=== PATIENT | male | born 1995 | race Caucasian/White ===

== ENCOUNTER → 2018-07-11 | Outpatient (CLI) | payer BC ==
--- NOTE | 2018-07-11 16:30 | US ---
EXAMINATION TYPE: US thyroid st tissue head/neck DATE OF EXAM: 07/11/2018 COMPARISON: NONE CLINICAL HISTORY: R22.1 LT SWELLING,MASS,LUMP IN NECK. Palpable area left neck At the area of the patient's palpable lump in the left neck, there is a probable lymph node visualize d measuring 2.9 x 1.0 x 1.6 cm. IMPRESSION: 1. Enlarged lymph node at the level of the palpable abnormality. 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 Recommendations: 1. Recommend CT soft tissue neck w con for additional evaluation.
== END | disposition home or self-care (01) ==
LOC: RADUSWWP 07:31
PROVIDERS: ATTEND Otolaryngology
DX: R22.1 Localized swelling, mass and lump, neck (principal)
CPT/HCPCS: 76536

== ENCOUNTER → 2018-07-29 | Outpatient (CLI) | payer BC ==
--- NOTE | 2018-07-29 09:01 | CT ---
EXAMINATION TYPE: CT soft tissue neck w con DATE OF EXAM: 07/29/2018 COMPARISON: None HISTORY: Lt neck mass CT DLP: 436 mGycm CONTRAST: CT scan of the neck is performed with IV Contrast, patient injected with 100 mL of Isovue 300. Contrast enhanced CT of the neck was performed from the skull base through the lung apices. AIRWAY: The supraglottic, glottic, and subglottic portions of the airway appear patent and free of mass. SALIVARY GLANDS: The submandibular and parotid glands are free of mass or inflammatory process. THYROID GLAND: No nodules or masses seen. LYMPH NODES: There is nonspecific adenopathy left internal jugular chain measuring 13 mm and 9.9 mm. Mildly prominent lymph nodes are also seen within the left posterior triangle measuring up to 7.8 mm. No right-sided adenopathy appreciated. LUNG APICES: No nodule or mass is seen. OTHER: Vascular structures are patent. No significant degenerative change of the cervical spine. N o abscess seen. IMPRESSION: 1. Nonspecific adenopathy. Correlate clinically.
== END | disposition home or self-care (01) ==
LOC: RADCTMAIN 07:57
PROVIDERS: ATTEND Otolaryngology
DX: R59.9 Enlarged lymph nodes, unspecified (principal)
CPT/HCPCS: 70491; Q9967

== ENCOUNTER 2018-08-12 09:01 | Day surgery (SDC) | payer BC ==
[2018-08-12 09:28] VITALS: RESP 16; TEMP 97.2
[2018-08-12] MEDS ORDERED: ALPRAZolam 0.5 MG TAB PO STA (09:34)
[2018-08-12 11:09] VITALS: BP 125/71; PULSE 71
--- NOTE | 2018-08-12 11:16 | US ---
ULTRASOUND GUIDED FNA THYROID BIOPSY: CLINICAL HISTORY: Left neck lymph node FINDINGS: The procedure was explained to the patient. The risks, complications, benefits and alternatives were discussed and any questions were answered. Informed consent was obtained. Patient was placed supin e on the ultrasound table and prepped and draped in the usual sterile fashion. Utilizing a 18 gauge core biopsy needle,two passes were made into the left neck lymph node. Patient was stable throughout the procedure. Pathology is pending. All elements of maximal barrier technique were utilized. IMPRESSION: 1. Successful ultrasound guided core biopsy left neck lymph node.
== END 2018-08-12 10:45 | disposition home or self-care (01) ==
LOC: RADPROMAIN 09:01
PROVIDERS: ATTEND Otolaryngology
DX: R59.0 Localized enlarged lymph nodes (principal)
CPT/HCPCS: 10005; 38505; 88305; 88312; 88341; 88342

== ENCOUNTER 2022-03-20 04:31 | Emergency (ER) | payer BC ==
[2022-03-20 04:41] VITALS: BP 115/74; RESP 16; TEMP 97.4
--- NOTE | 2022-03-20 06:47 | ED ---
ENT HPI - General Chief complaint: ENT Stated complaint: Sore throat Time Seen by Provider: 03/20/22 06:02 Source: patient, RN notes reviewed Mode of arrival: ambulatory Limitations: no limitations - History of Present Illness Initial comments: 26-year-old male present emergency department with chief complaint of sore throat congestion. Patient states symptoms started. She was getting better but she was significant other. Patient denies any reported fever states he felt warm the first initial day. Patient denies any symptoms in past medical history NO KNOWN DRUG ALLERGIES no abdominal plain no other complaints. - Related Data Home Medications Medication Instructions Recorded Confirmed Clindamycin Gel [Clindamycin 1 applic TOPICAL BID PRN 08/07/18 08/07/18 Phosphate 1% Gel] Doxycycline Monohydrate 50 mg PO DAILY 08/07/18 08/07/18 Allergies Allergy/AdvReac Type Severity Reaction Status Date / Time No Known Allergies Allergy Verified 08/12/18 09:28 Review of Systems ROS Statement: Those systems with pertinent positive or pertinent negative responses have been documented in the HPI. ROS Other: All systems not noted in ROS Statement are negative. Past Medical History Past Medical History: Skin Disorder Additional Past Medical History / Comment(s): probable enlarged lymph nodes left side neck History of Any Multi-Drug Resistant Organisms: None Reported Past Surgical History: Tonsillectomy Past Anesthesia/Blood Transfusion Reactions: No Reported Reaction Past Psychological History: No Psychological Hx Reported Smoking Status: Never smoker Past Alcohol Use History: Rare Past Drug Use History: None Reported - Past Family History Father Family Medical History: Cancer Additional Family Medical History / Comment(s): prostate General Exam Limitations: no limitations General appearance: alert, in no apparent distress Head exam: Present: atraumatic, normocephalic, normal inspection Eye exam: Present: normal appearance, PERRL, EOMI. Absent: scleral icterus, conjunctival injection, periorbital swelling ENT exam: Present: normal exam, normal oropharynx, mucous membranes moist Neck exam: Present: normal inspection, full ROM. Absent: tenderness, meningismus, lymphadenopathy Respiratory exam: Present: normal lung sounds bilaterally. Absent: respiratory distress, wheezes, rales, rhonchi, stridor Cardiovascular Exam: Present: regular rate, normal rhythm, normal heart sounds. Absent: systolic murmur, diastolic murmur, rubs, gallop, clicks Course Vital Signs 03/20/22 03/20/22 04:37 07:03 Temperature 97.4 F L Pulse Rate 65 77 Respiratory 16 16 Rate Blood Pressure 115/74 O2 Sat by Pulse 99 100 Oximetry Medical Decision Making - Medical Decision Making Please return to the Emergency Department if symptoms worsen or any other concerns. - Lab Data Lab Results 03/20/22 03/20/22 Range/Units 05:31 05:44 Coronavirus (PCR) Not Detected (Not Detectd) Group A Strep Rapid Negative (Negative) Disposition Clinical Impression: Acute viral pharyngitis, URI (upper respiratory infection) Disposition: HOME SELF-CARE Instructions (If sedation given, give patient instructions): Pharyngitis (ED) Additional Instructions: Please return to the Emergency Department if symptoms worsen or any other concerns. Is patient prescribed a controlled substance at d/c from ED?: No Referrals: Chica Huffman PAC [Primary Care Provider] - 1-2 days Time of Disposition: 06:47
[2022-03-20 07:14] VITALS: PULSE 77
== END 2022-03-20 07:06 | disposition home or self-care (01) ==
LOC: EC 04:31
DX: J06.9 Acute upper respiratory infection, unspecified (principal); J02.9 Acute pharyngitis, unspecified; Z20.822 Contact with and (suspected) exposure to COVID-19
CPT/HCPCS: 87081; 87430; 87635; 99283

== ENCOUNTER → 2024-06-28 | Outpatient (CLI) | payer BC | END | disposition home or self-care (01) | LOC: LABWHC1 11:03 | PROVIDERS: ATTEND Family Medicine | DX: Z01.83 Encounter for blood typing (principal); F90.0 Attention-deficit hyperactivity disorder, predominantly inattentive type | CPT/HCPCS: 86900; 86901 ==